=== PATIENT | male | born 1945 | race Caucasian/White ===

== ENCOUNTER → 2024-08-28 14:50 | Outpatient (BNVA) | payer MEDICARE, SELFPAY | PROVIDERS: PCP Family Medicine; Visit Provider Family Medicine | DX: R30.9 Painful micturition, unspecified (principal); R53.82 Chronic fatigue, unspecified; D64.9 Anemia, unspecified; I10 Essential (primary) hypertension; E78.2 Mixed hyperlipidemia; N40.1 Benign prostatic hyperplasia with lower urinary tract symptoms; N13.8 Other obstructive and reflux uropathy; R79.89 Other specified abnormal findings of blood chemistry; R33.9 Retention of urine, unspecified | CPT/HCPCS: 80053; 80061; 81000; 82306; 82607; 82728; 82746; 83540; 84439; 84443; 85025; 85651; 86140; G0103 ==

== ENCOUNTER → 2024-12-24 15:55 | Outpatient (BNVA) | payer MEDICARE, SELFPAY | PROVIDERS: PCP Family Medicine; Visit Provider Family Medicine | DX: E87.6 Hypokalemia (principal); I10 Essential (primary) hypertension; R79.89 Other specified abnormal findings of blood chemistry; D64.9 Anemia, unspecified | CPT/HCPCS: 80053; 85025 ==